=== PATIENT | female | born 1970 | race Caucasian/White ===

== ENCOUNTER 2017-12-25 20:22 | Emergency (ER) | payer MEDICAID ==
[~2017-12-25] VITALS: Ht 175.3 cm; Wt 125.0 kg
[~2017-12-25 20:22] MED LIST: ALBU8.5H5; AMIT100T PO; CLON1TAB PO; DIPH1TAB PO; ESOM20CA PO; FLUT1DIS3 INH; HYDR-3240 PO; LEVO88TA4 PO; MECL25TA4 PO; ONDA8TAB9 PO; OXCA150T3; PRAZ1CAP2 PO; RIZA10TA34 PO; TRAZADONE PO; VILA10TA PO; ZOLP10TA PO
[2017-12-25] MEDS ORDERED: SODIUM CHLORIDE FLUSH 10ML SYR IVF ONE (21:00)
[2017-12-25] MEDS ORDERED: HYDROmorphone 2 MG/ML, 1ML ONE ×2 (21:01→21:50)
[2017-12-25] MEDS: HYDROmorphone 2 MG/ML, 1ML IVPush PRN ×2 (21:03→21:57)
[2017-12-25 21:04] VITALS: BP 144/86
[2017-12-25 21:08] LABS: BASOPHILS # (AUTO) 0.17 x10^3/uL (0-0.1); BASOPHILS % (AUTO) 1 % (0-1); EOSINOPHILS # (AUTO) 0.22 x10^3/uL (0-0.4); EOSINOPHILS % (AUTO) 2 % (1-7); LYMPHOCYTES # (AUTO) 2.83 x10^3/uL (1-3.4); LYMPHOCYTES % (AUTO) 22 % (22-44); MD NO; MEAN CORPUSCULAR HEMOGLOBIN 30.4 pg (27.0-34.8); MEAN CORPUSCULAR HGB CONC 33.4 g/dL (32.4-35.8); MEAN CORPUSCULAR VOLUME 90.9 fL (80-100); MEAN PLATELET VOLUME 8.1 fL (7.4-10.4); MONOCYTES # (AUTO) 0.53 x10^3/uL (0.2-0.8); MONOCYTES % (AUTO) 4 % (2-9); NEUTROPHILS # (AUTO) 9.32 x10^3/uL (1.8-6.8); NEUTROPHILS % (AUTO) 71 % (42-75); PLATELET COUNT 368 x10^3/uL (130-400); RED CELL DISTRIBUTION WIDTH 14.1 % (9.6-15.2)
[2017-12-25 21:18] LABS: ALBUMIN 3.7 g/dL (3.4-5.0); ANION GAP 8 mmol/L (5-15); CALCIUM 9.5 mg/dL (8.5-10.1); CHLORIDE 107 mmol/L (98-107); CREATININE 0.96 mg/dL (0.55-1.02)
[2017-12-25 21:35] LABS: ALANINE AMINOTRANSFERASE 23 U/L (12-78); ALKALINE PHOSPHATASE 100 U/L (45-117); BILIRUBIN,TOTAL 0.2 mg/dL (0.2-1.0); TOTAL PROTEIN 7.5 g/dL (6.4-8.2)
[2017-12-25] MEDS ORDERED: OMNIPAQUE 350 MG/ML, 100ML BOTTLE ONE (21:40)
[2017-12-25] MEDS ORDERED: OXYcodone/APAP 5/325MG TABLET ONE (22:37)
[2017-12-25] MEDS ORDERED: ONDANSETRON ODT 4 MG ONE (22:38)
[2017-12-25] MEDS ORDERED: ONDANSETRON ODT 4 MG PO ONE (23:00)
[2017-12-25] MEDS ORDERED: OXYcodone/APAP 5/325MG TABLET PO ONE (23:00)
== END 2017-12-25 22:49 | disposition home or self-care (01) ==
LOC: ED 22:43
DX: S76.012A Strain of muscle, fascia and tendon of left hip, initial encounter (principal); S30.0XXA Contusion of lower back and pelvis, initial encounter; M25.572 Pain in left ankle and joints of left foot; W11.XXXA Fall on and from ladder, initial encounter; Y93.89 Activity, other specified; Y99.8 Other external cause status; Y92.89 Other specified places as the place of occurrence of the external cause
CPT/HCPCS: 36415; 73090; 73110; 73502; 73610; 73630; 74177; 80053; 85025; 96374; 96376; 99285; J1170; Q0162; Q9967